=== PATIENT | female | born 1970 | race Asian ===

== ENCOUNTER → 2019-02-03 | Day surgery (SDC) | payer OTHER ==
[~2019-02-03] MED LIST: FERROUS SULFAT324 MG PO; HYOSCYAMINE 0.125 MG TAB ONE; KETAMINE HCL INJ 50 MG/ML 10 ML VIAL ONE; MIDAZOLAM HCL 2 MG/2 ML VIAL ONE; PROPOFOL IV EMULSION 10 MG/ML 50 ML VIAL ONE
--- OUTSIDE RECORDS SUMMARY | 2019-02-03 10:57 | XMS REPORT | Clinical Summary ---
Author Author [facility] Organization [facility] Address Unknown Phone Unavailable Care Team Providers Care Healthcare Translator Name Role Phone Gustabo Woodward DO PCP Allergies No Known Allergies Medications End Date Status Medication Sig Dispensed Refills Start Date Active RABEprazole (ACIPHEX) 20 Take 20 mg by 0 mg EC tablet mouth once as needed. Active Problems No known active problems Encounters Care Team Description Date Type Specialty Sandra Vyas MA Chronic fibrocystic breast disease (FCBD) in female, unspecified laterality (Primary Dx) 12/27/2018 Orders Only General Surgery Cash Bennett MD 12/21/2018 Telephone General Surgery Steffany Allen MA 11/14/2018 Telephone General Surgery Cash Bennett MD Chronic fibrocystic breast disease (FCBD) in female, unspecified laterality (Primary Dx) 07/18/2018 Office Visit General Surgery after 02/02/2018 Family History Medical History Relation Name Comments Hypertension Father Hypertension Sister Stroke Sister Relation Name Status Comments Father Sister Social History Date Tobacco Use Types Packs/Day Years Used Never Smoker Smokeless Tobacco: Never Used Drinks/Week oz/Week Comments Alcohol Use Yes Sex Assigned at Date Recorded Not on file Industry Job Start Date Occupation Not on file Not on file Not on file Travel End Travel History Travel Start No recent travel history available. Last Filed Vital Signs Reading Time Taken Comments Vital Sign 150/93 07/18/2018 2:41 PM [employer] Blood Pressure 75 07/18/2018 2:41 PM [employer] Pulse 36.5 C (97.7 F) 07/18/2018 2:41 PM [employer] Temperature 18 07/18/2018 2:41 PM [employer] Respiratory Rate 100% 07/18/2018 2:41 PM [employer] Oxygen Saturation - - Inhaled Oxygen Concentration 58.8 kg (129 lb 9.6 oz) 07/18/2018 2:41 PM [employer] Weight 160 cm (5' 3") 07/18/2018 2:41 PM [employer] Height 22.96 07/18/2018 2:41 PM [employer] Body Mass Index Plan of Treatment Health Maintenance Due Date Last Done Comments COLONOSCOPY SCREENING 2018 SHINGLES VACCINES (#1) 2018 INFLUENZA VACCINE 12/14/2018 CERVICAL CANCER SCREENING 10/27/2019 10/26/2016 BREAST CANCER SCREENING 01/10/2020 01/09/2018, 01/09/2018, 11/05/2016, Additional history exists Results Not on fileafter 02/02/2018 Advance Directives For more information, please contact: [phone] Patient Master Motorcycle Technician Explanation Type Date Recorded Advance Directives, Living Will and Medical Power of Social Media Strategist
[2019-02-03 15:15] VITALS: BP 125/85
--- NOTE | 2019-02-03 22:50 | Operative Report ---
DATE OF PROCEDURE: 02/03/2019 SURGEON: Jamshid Mendiola MD PROCEDURE: Colonoscopy with polypectomy. INDICATION FOR COLONOSCOPY: Colorectal cancer screening. MEDICATIONS: The patient was done under MAC. Please see anesthesiologist's note. PROCEDURE IN DETAIL: With the patient in left lateral decubitus position, flexible fiberoptic Olympus colonoscope was inserted into the rectum with ease and advanced all the way to the cecum. It was then withdrawn slowly. Mucosa overlying the cecum appeared to be within normal limits. Two polyps were removed per snare electrocautery from the ascending colon. The transverse appeared to be within normal limits. One polyp was removed per snare electrocautery from the descending colon. Four polyps were hot biopsied from the sigmoid colon. The rectum appeared to be within normal limits. The scope was then retroflexed into the distal rectum and small internal hemorrhoids were noted, none of which was actively bleeding. The scope was then straightened out. It was subsequently withdrawn. The patient tolerated the procedure well. IMPRESSION: 1. Ascending colon polyps x2, snared. 2. Descending colon polyp x1, snared. 3. Sigmoid colon polyps x4, hot biopsied. 4. Internal hemorrhoids, none actively bleeding. PLAN: Follow up histology. Initiate high-fiber, low-fat diet. Initiate high-fiber supplement. The patient might benefit from a followup colonoscopy in 3 years. MD ISAC Christian/ISABELLA /[id number] cc: Gustabo Woodward DO
== END | disposition home or self-care (01) ==
LOC: OR 10:56
PROVIDERS: ATTEND Internal Medicine Gastroenterology
DX: Z12.11 Encounter for screening for malignant neoplasm of colon (principal); D12.2 Benign neoplasm of ascending colon; K64.8 Other hemorrhoids; R12 Heartburn; R03.0 Elevated blood-pressure reading, without diagnosis of hypertension; R00.1 Bradycardia, unspecified; Z01.810 Encounter for preprocedural cardiovascular examination
CPT/HCPCS: 36415; 45384; 45385; 84702; 93005; J2250; J2704